=== PATIENT | female | born 1990 | race Caucasian/White ===

== ENCOUNTER → 2021-05-22 15:32 | Outpatient (BNVA) | payer BC, SELFPAY | PROVIDERS: PCP Nurse Practitioner Gerontology; Visit Provider Nurse Practitioner Family ==

== ENCOUNTER → 2021-07-30 15:34 | Outpatient (BNVA) | payer OTHER, SELFPAY | PROVIDERS: Visit Provider Nurse Practitioner Family | DX: F07.81 Postconcussional syndrome (principal); G43.909 Migraine, unspecified, not intractable, without status migrainosus; M54.2 Cervicalgia | CPT/HCPCS: 99212 ==

== ENCOUNTER → 2021-10-16 15:04 | Outpatient (BNVA) | payer OTHER, BC, SELFPAY | PROVIDERS: PCP Nurse Practitioner Gerontology; Visit Provider Nurse Practitioner Family | DX: F07.81 Postconcussional syndrome (principal); G43.909 Migraine, unspecified, not intractable, without status migrainosus; F41.9 Anxiety disorder, unspecified | CPT/HCPCS: 99212 ==

== ENCOUNTER → 2022-01-14 09:02 | Outpatient (BNVA) | payer OTHER, BC, SELFPAY | PROVIDERS: PCP Nurse Practitioner Gerontology; Visit Provider Nurse Practitioner Family | DX: F07.81 Postconcussional syndrome (principal); G43.909 Migraine, unspecified, not intractable, without status migrainosus; F41.9 Anxiety disorder, unspecified | CPT/HCPCS: 99212 ==

== ENCOUNTER → 2022-05-04 08:31 | Outpatient (BNVA) | payer OTHER, BC, SELFPAY | PROVIDERS: PCP Nurse Practitioner Gerontology; Visit Provider Nurse Practitioner Family | DX: F07.81 Postconcussional syndrome (principal); G43.909 Migraine, unspecified, not intractable, without status migrainosus; F41.9 Anxiety disorder, unspecified; M54.2 Cervicalgia | CPT/HCPCS: 99212 ==

== ENCOUNTER → 2022-08-04 08:03 | Outpatient (BNVA) | payer OTHER, BC, SELFPAY | PROVIDERS: PCP Nurse Practitioner Gerontology; Visit Provider Nurse Practitioner Family | DX: F07.81 Postconcussional syndrome (principal); G43.709 Chronic migraine without aura, not intractable, without status migrainosus; R06.83 Snoring; G47.19 Other hypersomnia; Z79.899 Other long term (current) drug therapy | CPT/HCPCS: 99212 ==

== ENCOUNTER 2023-04-16 08:05 | Outpatient (AMB) | payer BC, SELFPAY ==
--- NOTE | 2023-04-16 08:10 | MHC.OFFVIS ---
Intake Vital Signs 04/16/23 08:10 Height 5 ft 6 in Intake Visit Reasons: WC - 3mo f/u post concusion Intake Note: Patient presents for3 month post concussion. just a regular check in Allergies Sulfa (Sulfonamide Antibiotics) Allergy (Severe, Verified 04/16/23 08:12) Unknown amoxicillin Allergy (Intermediate, Verified 04/16/23 08:12) Hives gluten Allergy (Mild, Verified 04/16/23 08:12) unknown wheat Allergy (Mild, Verified 04/16/23 08:12) unknown HPI HPI Comments History of Present Illness Details 32-yr-old female presents for f/u visit. Pt denies any significant interval medical changes. Pt reports last month she had increased migraine attacks, she is not sure what triggered this. But then the attacks subsided about 2 weeks ago. In hindsight, this improvement correlated w/ an increase in her Nifedipine dose. She is getting her IUD removed next week, and is hoping to start a family. She has been weaning off of most of medications. 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 She has a local SUPPLY CHAIN GENERALIST- at [facility] SUPPLY CHAIN GENERALIST- pt states she has an upcoming appt to discuss if she should see a local highway engineering teacher clinic. [facility] Medical History Celiac disease Type I diabetes mellitus Surgical History No history of previous surgery Family History Mother Kidney disease Cancer Social History Household Members: Spouse Household Members Other:: Alcohol intake: current Alcohol intake frequency: does not drink Patient Tobacco Use Status: Never used Tobacco Physical Exam Const General: cooperative and no acute distress Orientation/consciousness: patient oriented x3 Resp Effort & Inspection: normal respiratory effort and able to speak in complete sentences Neuro General: patient oriented x3 Cranial nerves: Yes CN's II-XII intact bilaterally Cognition (Neuro): normal cognition Psych Appearance: grossly normal Mental Status: mental status grossly normal Speech and movement: Normal speech and movement present Affect: normal affect Attitude: cooperative Assessment & Plan Assessment & Plan (1) Postconcussional syndrome: Comment: s/p fall at work on Feb 20, 2019. Migraine headaches, cognitive difficulties, emotional lability, sleep difficulties. Code(s): F07.81 - Postconcussional syndrome (2) Chronic migraine without aura, not intractable, without status migrainosus: Code(s): G43.709 - Chronic migraine without aura, not intractable, without status migrainosus (3) Patient desires : Code(s): Z31.9 - Encounter for procreative management, unspecified Plan Pt never started Botox, if migraine/.headache burden worsens, we can reconsider. Wean off Atogepant 60mg- 1/2 tab x's 1 wk, then 1/2 tab qod x's 1 wk, then stop- as there is no safety data on gepants in . Continue Riboflavin and Magnesium. Continue prn Zolmitriptan. Hold prn Ubrogepant, Baclofen. Continue Warm packs, stretching prn for cervical muscle spasm. Continue walking exercise. Continue current CBT and psychiatric care. Pt is hopeful to begin family planning- pt would be able to continue her mag, triptan as well as B2 while . We could consider Botox in . Start Nerivio- 45 min nueormodulation stimulation qod for migraine prevention and qd prn acute migraine tx. There is new safety safety data in for Nerivio. Order slip given to pt- she will complete and send back to us. For sleep- Monitor- we can reconsider HST to assess for sleep apnea. 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 f/u in 4 months or sooner prn new/worsening s/s Coding Level of Care Code Est Pt Level 4 (47122) Diagnoses Postconcussional syndrome F07.81 Chronic migraine without aura, not intractable, without status migrainosus G43.709 Patient desires Z31.9
== END 2023-04-16 08:46 | disposition home or self-care (01) ==
PROVIDERS: PCP Nurse Practitioner Gerontology; Visit Provider Nurse Practitioner Family
DX: G44.319 Acute post-traumatic headache, not intractable (principal); F07.81 Postconcussional syndrome; Z31.69 Encounter for other general counseling and advice on procreation
CPT/HCPCS: 99214

== ENCOUNTER → 2023-04-16 08:05 | Outpatient (BNVA) | payer OTHER, BC, SELFPAY | PROVIDERS: PCP Nurse Practitioner Gerontology; Visit Provider Nurse Practitioner Family | DX: F07.81 Postconcussional syndrome (principal); G43.709 Chronic migraine without aura, not intractable, without status migrainosus; Z31.9 Encounter for procreative management, unspecified; Z79.899 Other long term (current) drug therapy | CPT/HCPCS: 99212 ==

== ENCOUNTER 2023-08-19 07:59 | Outpatient (AMB) | payer OTHER, BC, SELFPAY ==
--- NOTE | 2023-08-19 08:11 | MHC.OFFVIS ---
Vital Signs 08/19/23 08:17 Height 5 ft 6 in BP 120/80 Blood Pressure Location Lt brachial Position Sitting Pulse 93 Pulse Source Pulse Oximeter Pulse Oximetry (%) 97 Oxygen Delivery Method Room Air Comment Pt. refused to be weighted Intake Visit Reasons: 4M follow up-LVM Intake Note: Patient presents for 4 months f/u. Wants to do a sleep study. Headaches not doing great. Pt. refused for me to take her weight. Allergies Sulfa (Sulfonamide Antibiotics) Allergy (Severe, Verified 08/19/23 08:16) Unknown amoxicillin Allergy (Intermediate, Verified 08/19/23 08:16) Hives gluten Allergy (Mild, Verified 08/19/23 08:16) unknown wheat Allergy (Mild, Verified 08/19/23 08:16) unknown Medication List - Last Reconciled 08/19/23 by BLANCHE Rinaldi alprazolam 0.5 mg PO DAILY PRN atogepant 60 mg PO DAILY 30 days buspirone 15 mg PO BID duloxetine 30 mg PO DAILY esomeprazole magnesium 40 mg PO BID insulin lispro (Humalog U-100 Insulin) subcut labetalol 100 mg PO BID levothyroxine (Synthroid) mcg PO magnesium oxide 400 mg PO BEDTIME 30 days nifedipine ER 90 mg PO DAILY omeprazole 40 mg PO BID onabotulinumtoxinA (Botox) 200 units IM ONCE 12 weeks prucalopride (Motegrity) mg PO riboflavin (vitamin B2) (Vitamin B-2) 200 mg (2 x 100 mg) PO BID 30 days zolmitriptan (Zomig) take 1 tab at onset of headache, may repeat 1 tab after at least 2 hrs; max 2 tabs per day or 4 tabs per week. 30 days HPI Comments Details: 32-yr-old female presents for f/u visit. Pt reports that her site acquisition manager requested that she speak to us about evaluating her sleep, as she has been having HTN, 140s/90s up to 170s/90s a/w headache despite being compliant w/ BP med. BP was changed from Nifedipine to Labetolol. Pt endorses snoring, difficulty initiating and maintaining sleep, unrefreshing sleep, restless sleep- thrashes around, nocturnal sweating, nocturia- voids about twice a night, fatigue and daytime sleepiness. She has been having a left upper tooth pain, saw her dentist who told her she has an left upper molar infection which she is being tx'd for w/ a 7 day course of Clarithromycin. She has been referred to root canal specialist. 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 Does endorse bruxism. Has just ordered an OTC mouth guard. In terms of her post-concussive migraines and headaches, Pt continues to have good periods, and then a few weeks of increased headaches. The last few weeks, she has had increased headaches, which she attributes to increased allergies, the tooth infection. Using Zomig and diet coke prn. She is off her control- IUD was removed in Apr. Not currently . [facility] Medical History Celiac disease Type I diabetes mellitus Surgical History No history of previous surgery Family History Mother Kidney disease Cancer Social History Household Members: Spouse Household Members Other:: Alcohol intake: current Alcohol intake frequency: does not drink Patient Tobacco Use Status: Never used Tobacco Physical Exam Vital Signs: Last Vital Signs Pulse 93 08/19/23 08:17 BP 120/80 08/19/23 08:17 Pulse Ox 97 08/19/23 08:17 Oxygen Delivery Method Room Air 08/19/23 08:17 Const General: cooperative and no acute distress Orientation/consciousness: patient oriented x3 Resp Effort & Inspection: normal respiratory effort and able to speak in complete sentences Neuro Other: Mild left cheek swelling, mild slurred speech. General: patient oriented x3 Cognition (Neuro): normal cognition Psych Appearance: grossly normal Mental Status: mental status grossly normal Speech and movement: Normal speech and movement present Affect: normal affect Attitude: cooperative Assessment & Plan Assessment & Plan (1) Postconcussional syndrome: Comment: s/p fall at work on Feb 20, 2019. Migraine headaches, cognitive difficulties, emotional lability, sleep difficulties. Code(s): F07.81 - Postconcussional syndrome Category: Medical (2) Chronic migraine without aura, not intractable, without status migrainosus: Code(s): G43.709 - Chronic migraine without aura, not intractable, without status migrainosus Category: Medical (3) Patient desires : Code(s): Z31.9 - Encounter for procreative management, unspecified Category: Medical (4) Excessive daytime sleepiness: Code(s): G47.19 - Other hypersomnia Category: Medical (5) Sleep difficulties: Code(s): G47.9 - Sleep disorder, unspecified Category: Medical (6) Snoring: Code(s): R06.83 - Snoring Category: Medical Plan Pt advised to undergo HST to assess for sleep apnea- as untreated sleep apnea can be a/w HTN, poor diabetes control, and headaches- pt aware this will be processed trhough her regualr insurnace not work comp. Once left upper molar infection resolved, trial OTC mouth guard for bruxism. If this is ineffective, consider PT eval & tx. Pt weaned off of Atogepant 60mg d/t family planning. Continue Riboflavin and Magnesium. Continue prn Zolmitriptan. Continue to hold prn Ubrogepant, Baclofen. Continue Warm packs, stretching prn for cervical muscle spasm. Continue walking exercise. Continue current CBT and psychiatric care. Pt is hopeful to begin family planning- pt would be able to continue her mag, triptan as well as B2 while . We could consider Botox in . Future consideration- revisiting Nerivio- 45 min nueormodulation stimulation qod for migraine prevention and qd prn acute migraine tx. There is new safety safety data in for Nerivio. ? 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 ? f/u in 6 months or sooner prn new/worsening s/s Medications: Refilled magnesium oxide 400 mg PO BEDTIME 30 days 30 tabs 6RF zolmitriptan (Zomig) take 1 tab at onset of headache, may repeat 1 tab after at least 2 hrs; max 2 tabs per day or 4 tabs per week. 30 days 16 tabs 6RF migraine headache Discontinued atogepant Discontinued Reason: Doctor's Order 60 mg PO DAILY 30 days 30 tabs 11RF Coding Level of Care Code Est Pt Level 4 (23286) Diagnoses Postconcussional syndrome F07.81 Chronic migraine without aura, not intractable, without status migrainosus G43.709 Patient desires Z31.9 Excessive daytime sleepiness G47.19 Sleep difficulties G47.9 Snoring R06.83 [place] Sleepiness Scale Questions Sitting and reading: slight chance of dozing Watching TV: moderate chance of dozing Sitting inactive in a theater, movie etc.: moderate chance of dozing As a passenger in a car for an hour without break: would never doze Lying down in the afternoon when circumstances permit: moderate chance of dozing Sitting and talking to someone: moderate chance of dozing Sitting quietly after lunch without alcohol: moderate chance of dozing In a car, while stopped for a few minutes in the traffic: would never doze ESS < 10: normal, ESS > 12: pathologic: 11
[2023-08-19 08:17] VITALS: BP 120/80; PULSE 93; O2SAT 97
== END 2023-08-19 09:01 | disposition home or self-care (01) ==
PROVIDERS: PCP Nurse Practitioner Gerontology; Visit Provider Nurse Practitioner Family
DX: F07.81 Postconcussional syndrome (principal); G44.329 Chronic post-traumatic headache, not intractable; G47.19 Other hypersomnia; G47.9 Sleep disorder, unspecified; R06.83 Snoring; Z31.9 Encounter for procreative management, unspecified
CPT/HCPCS: 99214

== ENCOUNTER → 2023-08-19 07:59 | Outpatient (BNVA) | payer OTHER, BC, SELFPAY | PROVIDERS: PCP Nurse Practitioner Gerontology; Visit Provider Nurse Practitioner Family | DX: F07.81 Postconcussional syndrome (principal); G43.709 Chronic migraine without aura, not intractable, without status migrainosus; G47.19 Other hypersomnia; R06.83 Snoring; Z31.9 Encounter for procreative management, unspecified; Z79.899 Other long term (current) drug therapy | CPT/HCPCS: 99212 ==

== ENCOUNTER 2024-03-06 10:20 | Outpatient (AMB) | payer OTHER, BC, SELFPAY ==
--- NOTE | 2024-03-06 10:17 | A.OFFVIS_ITS ---
Intake Visit Reasons: Follow Up w/c Intake Note: Patient presents for a 6 month f/u- Telehealth appointment. Lift Builder Whole Required: No Accompanied by: Self / Same As Patient Allergies Sulfa (Sulfonamide Antibiotics) Allergy (Severe, Verified 03/06/24 10:20) Unknown amoxicillin Allergy (Intermediate, Verified 03/06/24 10:20) Hives gluten Allergy (Mild, Verified 03/06/24 10:20) unknown wheat Allergy (Mild, Verified 03/06/24 10:20) unknown Medication List - Last Reconciled 03/06/24 by Nedra Amaya, BLANCHE alprazolam 0.5 mg PO DAILY PRN buspirone 15 mg PO BID duloxetine 30 mg PO DAILY insulin lispro (Humalog U-100 Insulin) subcut labetalol 100 mg PO BID levothyroxine (Synthroid) 200mcg q Sun, then 100mcg qd (w/ extra 100mcg doseper week) orally; magnesium oxide 400 mg PO BEDTIME 30 days metoclopramide HCl 5 mg PO Q4-6H PRN 30 days nifedipine ER 90 mg PO DAILY omeprazole 40 mg PO BID onabotulinumtoxinA (Botox) 200 units IM ONCE 12 weeks riboflavin (vitamin B2) (Vitamin B-2) 200 mg (2 x 100 mg) PO BID 30 days zolmitriptan (Zomig) take 1 tab at onset of headache, may repeat 1 tab after at least 2 hrs; max 2 tabs per day or 4 tabs per week. 90 days HPI Comments Details: 33-yr-old female presents for f/u televideo visit via Swiv[employer] for f/u of post- concussive migraine and headache. Pt reports that her crushing machine operator is still trying to manage her BP, her BP tx was adjusted to Nifedipine 90mg qd and Labetolol 100mg but BP is still elevated. She did not have HST- was denied by insurance.. Pt continues to endorse very loud snoring, difficulty initiating and maintaining sleep, unrefreshing sleep, restless sleep- thrashes around, nocturnal sweating, nocturia- voids about twice a night, fatigue and daytime sleepiness. Pt is ~ 7 weeks . Due date mid-October. OB appt is in early Mar at [facility] in [place] at [facility]. In terms of her post-concussive migraines and headaches, pt has been having less headaches since becoming . Pt has stopped B2, prn Zofran, Zomig d/t . The last few weeks, she has had increased headaches, which she attributes to increased allergies, the tooth infection. Wondering what she can take prn now that she is . [facility] Medical History Celiac disease Type I diabetes mellitus Surgical History No history of previous surgery Family History Mother Kidney disease Cancer Social History Household Members: Spouse Household Members Other:: Alcohol intake: current Alcohol intake frequency: does not drink Patient Tobacco Use Status: Never used Tobacco Physical Exam Const General: cooperative and no acute distress Orientation/consciousness: patient oriented x3 Resp Effort & Inspection: normal respiratory effort and able to speak in complete sentences Neuro General: patient oriented x3 and moves all extremities Cognition (Neuro): normal cognition Psych Appearance: grossly normal Mental Status: mental status grossly normal Speech and movement: Normal speech and movement present Affect: normal affect Attitude: cooperative Telehealth Telehealth Telehealth Platform: Swiv[employer] Location of provider rendering services: practice address Location of patient: address on file Patient Identification confirmed using: Name, : Yes Telehealth method: video Patient verbally consented to treatment: Yes Patient verbally consented to billing insurance company: Yes Patient informed of any privacy concerns related to visit: Yes Minutes spent on Phone/Video with Pt.: 25 Assessment & Plan Assessment & Plan (1) Postconcussional syndrome: Comment: s/p fall at work on Feb 20, 2019. Migraine headaches, cognitive difficulties, emotional lability, sleep difficulties. Code(s): F07.81 - Postconcussional syndrome Category: Medical (2) Chronic migraine without aura, not intractable, without status migrainosus: Code(s): G43.709 - Chronic migraine without aura, not intractable, without status migrainosus Category: Medical (3) Excessive daytime sleepiness: Code(s): G47.19 - Other hypersomnia Category: Medical (4) Sleep difficulties: Code(s): G47.9 - Sleep disorder, unspecified Category: Medical (5) Snoring: Code(s): R06.83 - Snoring Category: Medical (6) : Code(s): Z34.90 - Encounter for supervision of normal , unspecified, unspecified trimester Category: Medical Plan Pt again advised to undergo HST to assess for sleep apnea in setting of snoring, excessive daytime sleepiness- as untreated sleep apnea can be a/w HTN, poor diabetes control, and headaches- pt aware this will be processed through her regular insurance and not work comp. Discussed that headcahe burden is often decreased when . Reviewed headache concerning/red flag signs to notify us/OB with. Continue Magnesium 400mg qhs.. Continue prn Zolmitriptan. Resume Metoclopramide 5mg po q4-6 hrs prn N/V and migraine headache. Continue to hold Riboflavin, Qulipta, prn Ubrogepant, Baclofen. Continue Warm packs, stretching prn for cervical muscle spasm. Continue walking exercise. Continue current CBT and psychiatric care. Future consideration- revisiting Nerivio- 45 min nueormodulation stimulation qod for migraine prevention and qd prn acute migraine tx. There is new safety safety data in for Nerivio. ? 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 Will follow-up upon review of above and patient to follow-up in clinic in 3-4 months or sooner prn. Orders: Orders RT home sleep study Today G47.19 - Other hypersomnia, G47.9 - Sleep disorder, unspecified, R06.83 - Snoring Medications: New metoclopramide HCl 5 mg PO Q4-6H 30 days PRN 60 tabs 1RF nausea and vomiting and migraine Refilled magnesium oxide 400 mg PO BEDTIME 30 days 30 tabs 6RF zolmitriptan (Zomig) take 1 tab at onset of headache, may repeat 1 tab after at least 2 hrs; max 2 tabs per day or 4 tabs per week. 90 days 48 tabs 6RF migraine headache On Hold riboflavin (vitamin B2) (Vitamin B-2) Hold Comment: Doctor's Order 200 mg (2 x 100 mg) PO BID 30 days 120 tabs 6RF Coding Level of Care Code Tele Est Pt Level 4 (54804) Diagnoses Postconcussional syndrome F07.81 Chronic migraine without aura, not intractable, without status migrainosus G43.709 Excessive daytime sleepiness G47.19 Sleep difficulties G47.9 Snoring R06.83 Z34.90 [place] Sleepiness Scale Questions Sitting and reading: moderate chance of dozing Watching TV: moderate chance of dozing Sitting inactive in a theater, movie etc.: moderate chance of dozing As a passenger in a car for an hour without break: would never doze Lying down in the afternoon when circumstances permit: moderate chance of dozing Sitting and talking to someone: would never doze Sitting quietly after lunch without alcohol: moderate chance of dozing In a car, while stopped for a few minutes in the traffic: would never doze ESS < 10: normal, ESS > 12: pathologic: 10
== END 2024-03-06 11:57 | disposition home or self-care (01) ==
PROVIDERS: PCP Nurse Practitioner Gerontology; Visit Provider Nurse Practitioner Family
DX: F07.81 Postconcussional syndrome (principal); G43.709 Chronic migraine without aura, not intractable, without status migrainosus; G47.19 Other hypersomnia; G47.9 Sleep disorder, unspecified; R06.83 Snoring; Z33.1 Pregnant state, incidental
CPT/HCPCS: 99214

== ENCOUNTER → 2024-03-06 10:20 | Outpatient (BNVA) | payer OTHER, BC, SELFPAY | PROVIDERS: PCP Nurse Practitioner Gerontology; Visit Provider Nurse Practitioner Family ==